=== PATIENT | male | born 1945 | race Caucasian/White ===

== ENCOUNTER 2021-05-11 14:43 | Inpatient (IN) ==
[2021-05-11] MEDS ORDERED: SODIUM CHLORIDE 0.9% 1,000 ML IV STA (15:39)
[2021-05-11] MEDS ORDERED: ASPIRIN 325 MG TABLET PO STA (15:39)
[2021-05-11 15:49] LABS: Basophils % 0.4 % (0.0-0.8); Eosinophils % 0.3 % (0.00-10.9); Hematocrit 37.7 VOL% (42.0-52.0); Hemoglobin 12.7 GM/DL (14.0-18.0); Immature Granulocytes % 0.5 %; Immature Granulocytes Absolute 0.04 #; Lymphocytes # 1.1 10*3/uL (1.4-4.0); Lymphocytes % 14.1 % (21.2-54.2); Mean Corpuscular HGB Conc 33.7 GM/DL (32-36); Mean Corpuscular Volume 92.4 FL (87-102); Mean Platelet Volume 9.8 FL (9.6-12.0); Monocytes % 12.7 % (1.7-12.7); Platelet Count 183 T/CUMM (130-400); Red Blood Count 4.08 MC/CUMM (3.8-5.5); Red Cell Distribution Width 13.2 % (9.3-17.3); White Blood Count 7.6 T/CUMM (4-12)
[2021-05-11 16:10] LABS: Albumin 3.9 G/DL (3.4-5.0); Bilirubin,Total 2.3 MG/DL (0.20-1.00); Calcium 9.9 MG/DL (8.5-10.1); Osmolality,Calculated 271.5 MOS/KG (273-304); Potassium 4.2 MMOL/L (3.5-5.1); Total Protein 6.5 G/DL (6.4-8.2)
[2021-05-11 17:26] LABS: Thyroid Stimulating Hormone 4.09 uIU/ml (0.358-3.74)
[2021-05-11] MEDS ORDERED: THIAMINE 200 MG/2 ML VIAL IV STA (17:29)
[2021-05-11] MEDS ORDERED: THIAMINE INJ 100 MG, FOLIC ACID INJ 1 MG, MAGNESIUM SULF INJ 2 GM, MULTIVITAMIN INJ 10 ... IV ONE (17:29)
[2021-05-11] MEDS ORDERED: ONDANSETRON 4 MG/2 ML VIAL IV PRN (17:39)
[2021-05-11] MEDS ORDERED: ENOXAPARIN 40 MG/0.4 ML SYRINGE SUBCUT SCH (18:00)
[2021-05-11 18:02] LABS: Hepatitis B Core IgM Quant 0.06 Index; Hepatitis B Surface Ag Quant < 0.10 Index; Hepatitis B Surface Ag Result Non-Reactive (NonReactive); Hepatitis C Virus Ab Quant 0.04 Index; Hepatitis C Virus Ab Result Non-Reactive (NonReactive)
[2021-05-11 18:14] LABS: Folate > 24.00 NG/ML (5.38-24.0); Vitamin B12 > 2000 PG/ML (211-911)
[2021-05-11] MEDS: TAMSULOSIN 0.4 MG CAPSULE PO SCH (22:15)
[2021-05-11] MEDS: DOCUSATE SODIUM 100 MG CAPSULE PO SCH (22:15)
[2021-05-12 02:15] LABS: Bilirubin,Urine Negative (Negative); Blood, Urine Small mg/dL (Negative); Glucose,Urine (UA) Negative (Negative); Hyaline Casts,Urine 13 /LPF (0-3); Ketones,Urine 5 mg/dL (Negative); Mucus,Urine Occasional /LPF (Occasional); Nitrite,Urine Negative (Negative); Protein,Urine Negative; RBC,Urine <1 /HPF (0-4); Sperm,Urine Occasional /HPF (Negative); Squamous Epithelial Cell,Urine Occasional /HPF (0-10); Urine Appearance Slightly Hazy (Clear); Urine Color Yellow (Yellow); Urine Specific Gravity 1.017 (1.001-1.035); Urine Urobilinogen < 2.0 EU/DL (0.2-1.0)
[2021-05-12 05:41] LABS: Basophils % 0.5 % (0.0-0.8); Eosinophils # 0.1 10*3/uL (0.0-0.87); Eosinophils % 2.2 % (0.00-10.9); Hematocrit 32.7 VOL% (42.0-52.0); Hemoglobin 11.4 GM/DL (14.0-18.0); Immature Granulocytes % 0.4 %; Immature Granulocytes Absolute 0.02 #; Lymphocytes # 1.4 10*3/uL (1.4-4.0); Lymphocytes % 24.9 % (21.2-54.2); Mean Corpuscular HGB Conc 34.9 GM/DL (32-36); Mean Corpuscular Volume 91.3 FL (87-102); Monocytes % 13.1 % (1.7-12.7); Neutrophils % 58.9 % (38.7-73.9); Platelet Count 126 T/CUMM (130-400); Red Blood Count 3.58 MC/CUMM (3.8-5.5); White Blood Count 5.5 T/CUMM (4-12)
[2021-05-12 06:05] LABS: Calcium 8.7 MG/DL (8.5-10.1); Osmolality,Calculated 268.4 MOS/KG (273-304); Potassium 3.6 MMOL/L (3.5-5.1); Risk Ratio 2.24; VLDL Cholesterol 17.2 MG/DL
[2021-05-12] MEDS: amLODIPine 5 MG TABLET PO SCH (08:14)
[2021-05-12] MEDS: FEXOFENADINE 180 MG TABLET PO SCH (08:14)
[2021-05-12] MEDS: PANTOPRAZOLE 40 MG TABLET PO SCH (08:14)
[2021-05-12] MEDS: allopurinoL 300 MG TABLET PO SCH (08:14)
[2021-05-12] MEDS: TAMSULOSIN 0.4 MG CAPSULE PO SCH ×2 (08:15→20:45)
[2021-05-12] MEDS: CYANOCOBALAMIN 500 MCG TABLET PO SCH (08:15)
[2021-05-12] MEDS: MULTIVITAMIN (CENTRUM) TABLET PO SCH (08:15)
[2021-05-12] MEDS: DOCUSATE SODIUM 100 MG CAPSULE PO SCH ×2 (08:15→20:45)
[2021-05-12] MEDS: ASPIRIN EC 81 MG TABLET PO SCH (08:15)
[2021-05-12] MEDS: COENZYME Q10 100 MG CAPSULE PO SCH (08:16)
[2021-05-12] MEDS ORDERED: THIAMINE 100 MG TABLET PO SCH (09:00)
[2021-05-12] MEDS: SODIUM CHLORIDE 0.9% 1,000 ML IV SCH ×2 (10:01→18:18)
[2021-05-12] MEDS: MUPIROCIN 2% OINT 22 GM TUBE TOP SCH ×2 (10:11→21:02)
[2021-05-12] MEDS: LORazepam 2 MG/1 ML VIAL IV PRN (14:06)
[2021-05-12] MEDS ORDERED: THIAMINE 200 MG/2 ML VIAL IV SCH (17:30)
[2021-05-12] MEDS: ENOXAPARIN 40 MG/0.4 ML SYRINGE SUBCUT SCH (20:45)
[2021-05-12] MEDS: LORazepam 0.5 MG TABLET PO SCH (20:45)
[2021-05-13] MEDS: THIAMINE 200 MG/2 ML VIAL IV SCH ×3 (01:29→16:47)
[2021-05-13] MEDS: LORazepam 2 MG/1 ML VIAL IV PRN ×3 (01:30→22:21)
[2021-05-13] MEDS: SODIUM CHLORIDE 0.9% 1,000 ML IV SCH ×3 (02:37→18:30)
[2021-05-13] MEDS ORDERED: HALOPERIDOL 5 MG/ML AMP IM ONE (04:03)
[2021-05-13] MEDS ORDERED: LORazepam 2 MG/1 ML VIAL IM ONE (04:14)
[2021-05-13] MEDS: amLODIPine 5 MG TABLET PO SCH (12:33)
[2021-05-13] MEDS: LORazepam 0.5 MG TABLET PO SCH ×2 (12:33→21:11)
[2021-05-13] MEDS: PANTOPRAZOLE 40 MG TABLET PO SCH (12:34)
[2021-05-13] MEDS: ASPIRIN EC 81 MG TABLET PO SCH (12:34)
[2021-05-13] MEDS: CYANOCOBALAMIN 500 MCG TABLET PO SCH (12:40)
[2021-05-13] MEDS: FEXOFENADINE 180 MG TABLET PO SCH (12:40)
[2021-05-13] MEDS: allopurinoL 300 MG TABLET PO SCH (12:40)
[2021-05-13] MEDS: COENZYME Q10 100 MG CAPSULE PO SCH (12:41)
[2021-05-13] MEDS: DOCUSATE SODIUM 100 MG CAPSULE PO SCH ×2 (12:41→21:11)
[2021-05-13] MEDS: MULTIVITAMIN (CENTRUM) TABLET PO SCH (12:41)
[2021-05-13] MEDS: TAMSULOSIN 0.4 MG CAPSULE PO SCH ×2 (12:42→21:11)
[2021-05-13] MEDS: MUPIROCIN 2% OINT 22 GM TUBE TOP SCH ×2 (12:43→21:11)
[2021-05-13] MEDS: HALOPERIDOL 5 MG TABLET PO SCH ×2 (16:45→21:11)
[2021-05-13] MEDS: ENOXAPARIN 40 MG/0.4 ML SYRINGE SUBCUT SCH (21:11)
[2021-05-13] MEDS ORDERED: LORazepam 2 MG/1 ML VIAL IV ONE (23:51)
[2021-05-14] MEDS: THIAMINE 200 MG/2 ML VIAL IV SCH ×3 (00:26→17:49)
[2021-05-14 08:32] LABS: PT Patient Result 11.2 SECS (10.5-12.0)
[2021-05-14] MEDS: amLODIPine 5 MG TABLET PO SCH (09:32)
[2021-05-14] MEDS: LORazepam 0.5 MG TABLET PO SCH ×3 (09:32→20:44)
[2021-05-14] MEDS: HALOPERIDOL 5 MG TABLET PO SCH ×2 (09:32→20:44)
[2021-05-14] MEDS: MUPIROCIN 2% OINT 22 GM TUBE TOP SCH ×2 (09:33→20:44)
[2021-05-14] MEDS: SODIUM CHLORIDE 0.9% 1,000 ML IV SCH ×3 (11:01→20:42)
[2021-05-14 13:26] LABS: Basophils % 0.3 % (0.0-0.8); Eosinophils # 0.1 10*3/uL (0.0-0.87); Eosinophils % 0.9 % (0.00-10.9); Hematocrit 33.3 VOL% (42.0-52.0); Hemoglobin 11.2 GM/DL (14.0-18.0); Immature Granulocytes % 0.5 %; Immature Granulocytes Absolute 0.03 #; Lymphocytes # 1.2 10*3/uL (1.4-4.0); Lymphocytes % 18.5 % (21.2-54.2); Mean Corpuscular HGB Conc 33.6 GM/DL (32-36); Mean Corpuscular Volume 93.3 FL (87-102); Monocytes % 9.8 % (1.7-12.7); Platelet Count 130 T/CUMM (130-400); Red Blood Count 3.57 MC/CUMM (3.8-5.5); Red Cell Distribution Width 12.9 % (9.3-17.3); White Blood Count 6.5 T/CUMM (4-12)
[2021-05-14 13:27] LABS: Glucose,CSF 51 MG/DL (40-70)
[2021-05-14] MEDS: PANTOPRAZOLE 40 MG TABLET PO SCH (13:27)
[2021-05-14] MEDS: TAMSULOSIN 0.4 MG CAPSULE PO SCH ×2 (13:27→20:44)
[2021-05-14] MEDS: CYANOCOBALAMIN 500 MCG TABLET PO SCH (13:27)
[2021-05-14] MEDS: FEXOFENADINE 180 MG TABLET PO SCH (13:27)
[2021-05-14] MEDS: ASPIRIN EC 81 MG TABLET PO SCH (13:27)
[2021-05-14] MEDS: COENZYME Q10 100 MG CAPSULE PO SCH (13:27)
[2021-05-14] MEDS: allopurinoL 300 MG TABLET PO SCH (13:28)
[2021-05-14] MEDS: DOCUSATE SODIUM 100 MG CAPSULE PO SCH ×2 (13:28→20:43)
[2021-05-14] MEDS: MULTIVITAMIN (CENTRUM) TABLET PO SCH (13:28)
[2021-05-14 13:34] LABS: Albumin 3.3 G/DL (3.4-5.0); Bilirubin,Total 1.2 MG/DL (0.20-1.00); Osmolality,Calculated 266.1 MOS/KG (273-304); Potassium 3.5 MMOL/L (3.5-5.1); Total Protein 6.3 G/DL (6.4-8.2)
[2021-05-14 13:40] LABS: Appearance,CSF Clear; Lymphocytes,CSF 87 %; Neutrophils,CSF 13 %; Red Blood Cell,CSF 793 C/CUMM; White Blood Cell,CSF 2 C/CUMM
[2021-05-14] MEDS: LORazepam 2 MG/1 ML VIAL IV PRN ×2 (16:17→23:02)
[2021-05-14] MEDS: ENOXAPARIN 40 MG/0.4 ML SYRINGE SUBCUT SCH (20:43)
[2021-05-15] MEDS: THIAMINE 200 MG/2 ML VIAL IV SCH ×3 (01:03→18:02)
[2021-05-15] MEDS: LORazepam 2 MG/1 ML VIAL IV PRN (04:30)
[2021-05-15] MEDS: SODIUM CHLORIDE 0.9% 1,000 ML IV SCH ×2 (04:32→15:12)
[2021-05-15] MEDS: COENZYME Q10 100 MG CAPSULE PO SCH (10:24)
[2021-05-15] MEDS: MULTIVITAMIN (CENTRUM) TABLET PO SCH (10:24)
[2021-05-15] MEDS: FEXOFENADINE 180 MG TABLET PO SCH (10:24)
[2021-05-15] MEDS: TAMSULOSIN 0.4 MG CAPSULE PO SCH ×2 (10:24→20:23)
[2021-05-15] MEDS: amLODIPine 5 MG TABLET PO SCH (10:25)
[2021-05-15] MEDS: LORazepam 0.5 MG TABLET PO SCH ×3 (10:25→20:23)
[2021-05-15] MEDS: CYANOCOBALAMIN 500 MCG TABLET PO SCH (10:25)
[2021-05-15] MEDS: ASPIRIN EC 81 MG TABLET PO SCH (10:26)
[2021-05-15] MEDS: allopurinoL 300 MG TABLET PO SCH (10:26)
[2021-05-15] MEDS: HALOPERIDOL 5 MG TABLET PO SCH ×2 (10:26→20:23)
[2021-05-15] MEDS: DOCUSATE SODIUM 100 MG CAPSULE PO SCH ×2 (10:26→20:23)
[2021-05-15] MEDS: MUPIROCIN 2% OINT 22 GM TUBE TOP SCH ×2 (10:26→20:23)
[2021-05-15] MEDS: PANTOPRAZOLE 40 MG TABLET PO SCH (10:26)
[2021-05-15 14:47] LABS: VDRL Spinal Fluid Negative (Negative)
[2021-05-15] MEDS: ENOXAPARIN 40 MG/0.4 ML SYRINGE SUBCUT SCH (20:23)
[2021-05-16] MEDS: LORazepam 2 MG/1 ML VIAL IV PRN (01:11)
[2021-05-16] MEDS: SODIUM CHLORIDE 0.9% 1,000 ML IV SCH ×4 (04:03→17:53)
[2021-05-16 05:37] LABS: Basophils % 0.4 % (0.0-0.8); Eosinophils # 0.1 10*3/uL (0.0-0.87); Hematocrit 34.7 VOL% (42.0-52.0); Hemoglobin 12.1 GM/DL (14.0-18.0); Immature Granulocytes % 0.4 %; Immature Granulocytes Absolute 0.03 #; Lymphocytes # 0.8 10*3/uL (1.4-4.0); Lymphocytes % 11.4 % (21.2-54.2); Mean Corpuscular HGB Conc 34.9 GM/DL (32-36); Mean Corpuscular Volume 91.8 FL (87-102); Mean Platelet Volume 9.1 FL (9.6-12.0); Monocytes % 13.4 % (1.7-12.7); Neutrophils % 73.4 % (38.7-73.9); Platelet Count 145 T/CUMM (130-400); Red Blood Count 3.78 MC/CUMM (3.8-5.5); Red Cell Distribution Width 12.7 % (9.3-17.3); White Blood Count 6.9 T/CUMM (4-12)
[2021-05-16] MEDS: PANTOPRAZOLE 40 MG TABLET PO SCH (09:40)
[2021-05-16] MEDS: THIAMINE 200 MG/2 ML VIAL IV SCH (09:40)
[2021-05-16] MEDS: MULTIVITAMIN (CENTRUM) TABLET PO SCH (09:40)
[2021-05-16] MEDS: CYANOCOBALAMIN 500 MCG TABLET PO SCH (09:40)
[2021-05-16] MEDS: DOCUSATE SODIUM 100 MG CAPSULE PO SCH ×2 (09:40→21:13)
[2021-05-16] MEDS: ASPIRIN EC 81 MG TABLET PO SCH (09:40)
[2021-05-16] MEDS: FEXOFENADINE 180 MG TABLET PO SCH (09:41)
[2021-05-16] MEDS: HALOPERIDOL 5 MG TABLET PO SCH ×2 (09:41→21:14)
[2021-05-16] MEDS: COENZYME Q10 100 MG CAPSULE PO SCH (09:41)
[2021-05-16] MEDS: LORazepam 0.5 MG TABLET PO SCH ×3 (09:41→21:14)
[2021-05-16] MEDS: TAMSULOSIN 0.4 MG CAPSULE PO SCH ×2 (09:41→21:13)
[2021-05-16] MEDS: MUPIROCIN 2% OINT 22 GM TUBE TOP SCH ×2 (09:42→21:15)
[2021-05-16] MEDS: amLODIPine 5 MG TABLET PO SCH (09:42)
[2021-05-16] MEDS: allopurinoL 300 MG TABLET PO SCH (09:42)
[2021-05-16] MEDS: ACETAMINOPHEN 325 MG TABLET PO PRN ×2 (15:54→21:13)
[2021-05-16] MEDS: ENOXAPARIN 40 MG/0.4 ML SYRINGE SUBCUT SCH (21:15)
[2021-05-17] MEDS: LORazepam 2 MG/1 ML VIAL IV PRN (04:42)
[2021-05-17] MEDS: SODIUM CHLORIDE 0.9% 1,000 ML IV SCH ×2 (06:35→14:49)
[2021-05-17 07:28] LABS: Albumin 2.8 G/DL (3.4-5.0); Bilirubin,Total 2.2 MG/DL (0.20-1.00); Calcium 8.8 MG/DL (8.5-10.1); Osmolality,Calculated 256.8 MOS/KG (273-304); Total Protein 6.6 G/DL (6.4-8.2)
[2021-05-17] MEDS ORDERED: DIAZEPAM 10 MG/2 ML SYRINGE IV ONE ×2 (07:32→15:00)
[2021-05-17 08:06] LABS: M. Tuberculosis PCR Result Negative (Negative); M. Tuberculosis PCR Source CSF
[2021-05-17] MEDS: amLODIPine 5 MG TABLET PO SCH (09:45)
[2021-05-17] MEDS: FEXOFENADINE 180 MG TABLET PO SCH (09:45)
[2021-05-17] MEDS: CYANOCOBALAMIN 500 MCG TABLET PO SCH (09:46)
[2021-05-17] MEDS: MULTIVITAMIN (CENTRUM) TABLET PO SCH (09:46)
[2021-05-17] MEDS: allopurinoL 300 MG TABLET PO SCH (09:46)
[2021-05-17] MEDS: PANTOPRAZOLE 40 MG TABLET PO SCH (09:46)
[2021-05-17] MEDS: COENZYME Q10 100 MG CAPSULE PO SCH (09:46)
[2021-05-17] MEDS: TAMSULOSIN 0.4 MG CAPSULE PO SCH ×2 (09:46→20:50)
[2021-05-17] MEDS: HALOPERIDOL 5 MG TABLET PO SCH ×2 (09:46→20:50)
[2021-05-17] MEDS: LORazepam 0.5 MG TABLET PO SCH ×3 (09:46→20:50)
[2021-05-17] MEDS: DOCUSATE SODIUM 100 MG CAPSULE PO SCH ×2 (09:46→20:50)
[2021-05-17] MEDS: ASPIRIN EC 81 MG TABLET PO SCH (09:46)
[2021-05-17] MEDS: MUPIROCIN 2% OINT 22 GM TUBE TOP SCH ×2 (09:46→20:54)
[2021-05-17] MEDS: THIAMINE 200 MG/2 ML VIAL IV SCH (09:47)
[2021-05-17 12:16] LABS: West Nile Virus Ab, IgG, CSF Negative (Negative); West Nile Virus Ab, IgM, CSF Negative (Negative)
[2021-05-17] MEDS: ACETAMINOPHEN 500 MG TABLET PO SCH (18:26)
[2021-05-17] MEDS: diphenhydrAMINE 50 MG/1 ML VIAL IV SCH (18:27)
[2021-05-17] MEDS: IMMUNE GLOBULIN 10% 20 GM, IMMUNE GLOBULIN 10% 10 GM, IMMUNE GLOBULIN 10% 5 GM in PREMI... IV SCH (19:02)
[2021-05-17] MEDS: ENOXAPARIN 40 MG/0.4 ML SYRINGE SUBCUT SCH (20:50)
[2021-05-17] MEDS: MEMANTINE 5 MG TABLET PO SCH (20:50)
[2021-05-17] MEDS ORDERED: HALOPERIDOL CONCENTRATE 2 MG/ML 15 ML BOTTLE PO SCH (21:00)
[2021-05-18] MEDS ORDERED: DIAZEPAM 10 MG/2 ML SYRINGE IV ONE (07:38)
[2021-05-18] MEDS: MULTIVITAMIN (CENTRUM) TABLET PO SCH (09:00)
[2021-05-18] MEDS: COENZYME Q10 100 MG CAPSULE PO SCH (09:00)
[2021-05-18] MEDS: amLODIPine 5 MG TABLET PO SCH (09:01)
[2021-05-18] MEDS: HALOPERIDOL 5 MG TABLET PO SCH ×2 (09:01→20:18)
[2021-05-18] MEDS: CYANOCOBALAMIN 500 MCG TABLET PO SCH (09:01)
[2021-05-18] MEDS: LORazepam 0.5 MG TABLET PO SCH ×3 (09:01→20:18)
[2021-05-18] MEDS: FEXOFENADINE 180 MG TABLET PO SCH (09:01)
[2021-05-18] MEDS: ASPIRIN EC 81 MG TABLET PO SCH (09:01)
[2021-05-18] MEDS: TAMSULOSIN 0.4 MG CAPSULE PO SCH ×2 (09:01→20:18)
[2021-05-18] MEDS: MEMANTINE 5 MG TABLET PO SCH ×2 (09:02→20:18)
[2021-05-18] MEDS: MUPIROCIN 2% OINT 22 GM TUBE TOP SCH ×2 (09:02→20:23)
[2021-05-18] MEDS: DOCUSATE SODIUM 100 MG CAPSULE PO SCH ×2 (09:02→20:18)
[2021-05-18] MEDS: allopurinoL 300 MG TABLET PO SCH (09:02)
[2021-05-18] MEDS: PANTOPRAZOLE 40 MG TABLET PO SCH (09:02)
[2021-05-18] MEDS: THIAMINE 200 MG/2 ML VIAL IV SCH (09:03)
[2021-05-18] MEDS: diphenhydrAMINE 50 MG/1 ML VIAL IV SCH ×2 (12:29→17:19)
[2021-05-18] MEDS: IMMUNE GLOBULIN 10% 20 GM, IMMUNE GLOBULIN 10% 10 GM, IMMUNE GLOBULIN 10% 5 GM in PREMI... IV SCH ×2 (12:29→18:05)
[2021-05-18] MEDS: ACETAMINOPHEN 500 MG TABLET PO SCH ×2 (12:29→17:19)
[2021-05-18] MEDS: SODIUM CHLORIDE 0.9% 1,000 ML IV SCH (12:49)
[2021-05-18] MEDS: LORazepam 2 MG/1 ML VIAL IV PRN (18:01)
[2021-05-18] MEDS: ENOXAPARIN 40 MG/0.4 ML SYRINGE SUBCUT SCH (20:23)
[2021-05-18] MEDS: clonazePAM 0.5 MG TABLET PO PRN (21:51)
[2021-05-19 05:39] LABS: Basophils % 0.8 % (0.0-0.8); Eosinophils # 0.1 10*3/uL (0.0-0.87); Eosinophils % 3.9 % (0.00-10.9); Hematocrit 33.3 VOL% (42.0-52.0); Hemoglobin 11.9 GM/DL (14.0-18.0); Immature Granulocytes % 0.6 %; Immature Granulocytes Absolute 0.02 #; Lymphocytes # 0.9 10*3/uL (1.4-4.0); Lymphocytes % 23.9 % (21.2-54.2); Mean Corpuscular HGB Conc 35.7 GM/DL (32-36); Monocytes % 21.7 % (1.7-12.7); Neutrophils % 49.1 % (38.7-73.9); Platelet Count 209 T/CUMM (130-400); Red Blood Count 3.74 MC/CUMM (3.8-5.5); White Blood Count 3.6 T/CUMM (4-12)
[2021-05-19] MEDS: SODIUM CHLORIDE 0.9% 1,000 ML IV SCH ×2 (05:50→10:19)
[2021-05-19 06:07] LABS: Calcium 9.1 MG/DL (8.5-10.1); Osmolality,Calculated 247.5 MOS/KG (273-304)
[2021-05-19 06:18] LABS: Eosinophils 3 % (0-10); Hypochromasia Slight; Lymphocytes 25 % (20-55); Segmented Neutrophils 56 % (50-85); Total Cells Counted 100
[2021-05-19 06:19] LABS: Microcytosis Slight; Platelet Estimate Normal
[2021-05-19] MEDS: THIAMINE 200 MG/2 ML VIAL IV SCH (10:10)
[2021-05-19] MEDS: HALOPERIDOL 5 MG TABLET PO SCH (10:13)
[2021-05-19] MEDS: CYANOCOBALAMIN 500 MCG TABLET PO SCH (10:14)
[2021-05-19] MEDS: amLODIPine 5 MG TABLET PO SCH (10:15)
[2021-05-19] MEDS: COENZYME Q10 100 MG CAPSULE PO SCH (10:15)
[2021-05-19] MEDS: LORazepam 0.5 MG TABLET PO SCH ×3 (10:15→21:33)
[2021-05-19] MEDS: MULTIVITAMIN (CENTRUM) TABLET PO SCH (10:16)
[2021-05-19] MEDS: DOCUSATE SODIUM 100 MG CAPSULE PO SCH ×2 (10:16→21:33)
[2021-05-19] MEDS: FEXOFENADINE 180 MG TABLET PO SCH (10:16)
[2021-05-19] MEDS: ASPIRIN EC 81 MG TABLET PO SCH (10:16)
[2021-05-19] MEDS: PANTOPRAZOLE 40 MG TABLET PO SCH (10:17)
[2021-05-19] MEDS: allopurinoL 300 MG TABLET PO SCH (10:17)
[2021-05-19] MEDS: POTASSIUM CHLORIDE 20 MEQ TABLET PO PRN ×4 (10:17→18:58)
[2021-05-19] MEDS: MEMANTINE 5 MG TABLET PO SCH ×2 (10:18→21:33)
[2021-05-19] MEDS: TAMSULOSIN 0.4 MG CAPSULE PO SCH ×2 (10:18→21:33)
[2021-05-19] MEDS: MUPIROCIN 2% OINT 22 GM TUBE TOP SCH ×2 (10:19→21:33)
[2021-05-19] MEDS: diphenhydrAMINE 50 MG/1 ML VIAL IV SCH (18:14)
[2021-05-19] MEDS: ACETAMINOPHEN 500 MG TABLET PO SCH (18:14)
[2021-05-19] MEDS: IMMUNE GLOBULIN 10% 20 GM, IMMUNE GLOBULIN 10% 10 GM, IMMUNE GLOBULIN 10% 5 GM in PREMI... IV SCH (18:57)
[2021-05-19 21:25] LABS: IgG Index, CSF 0.5 (<=0.85); IgG, CSF 5.8 mg/dL (<=8.1); IgG/Albumin Ratio, CSF 0.1 (<=0.21); Synthesis Rate, CSF 3.47 mg/24 h (<=12)
[2021-05-19] MEDS: ENOXAPARIN 40 MG/0.4 ML SYRINGE SUBCUT SCH (21:34)
[2021-05-20 06:25] LABS: Calcium 9.2 MG/DL (8.5-10.1); Osmolality,Calculated 249.4 MOS/KG (273-304); Potassium 3.6 MMOL/L (3.5-5.1)
[2021-05-20] MEDS: COENZYME Q10 100 MG CAPSULE PO SCH (09:40)
[2021-05-20] MEDS: THIAMINE 200 MG/2 ML VIAL IV SCH (09:40)
[2021-05-20] MEDS: CYANOCOBALAMIN 500 MCG TABLET PO SCH (09:41)
[2021-05-20] MEDS: TAMSULOSIN 0.4 MG CAPSULE PO SCH ×2 (09:41→21:24)
[2021-05-20] MEDS: PANTOPRAZOLE 40 MG TABLET PO SCH (09:42)
[2021-05-20] MEDS: ASPIRIN EC 81 MG TABLET PO SCH (09:42)
[2021-05-20] MEDS: DOCUSATE SODIUM 100 MG CAPSULE PO SCH ×2 (09:42→21:24)
[2021-05-20] MEDS: LORazepam 0.5 MG TABLET PO SCH ×3 (09:42→21:24)
[2021-05-20] MEDS: allopurinoL 300 MG TABLET PO SCH (09:42)
[2021-05-20] MEDS: MEMANTINE 5 MG TABLET PO SCH ×2 (09:42→21:24)
[2021-05-20] MEDS: FEXOFENADINE 180 MG TABLET PO SCH (09:43)
[2021-05-20] MEDS: MULTIVITAMIN (CENTRUM) TABLET PO SCH (09:43)
[2021-05-20] MEDS: amLODIPine 5 MG TABLET PO SCH (09:43)
[2021-05-20] MEDS: MUPIROCIN 2% OINT 22 GM TUBE TOP SCH ×2 (09:49→21:24)
[2021-05-20] MEDS: SODIUM CHLORIDE 0.9% 1,000 ML IV SCH ×2 (13:31→17:39)
[2021-05-20] MEDS: ACETAMINOPHEN 500 MG TABLET PO SCH (18:07)
[2021-05-20] MEDS: diphenhydrAMINE 50 MG/1 ML VIAL IV SCH (18:10)
[2021-05-20] MEDS: IMMUNE GLOBULIN 10% 20 GM, IMMUNE GLOBULIN 10% 10 GM, IMMUNE GLOBULIN 10% 5 GM in PREMI... IV SCH (18:46)
[2021-05-20] MEDS: ENOXAPARIN 40 MG/0.4 ML SYRINGE SUBCUT SCH (21:24)
[2021-05-20] MEDS: clonazePAM 0.5 MG TABLET PO PRN (21:24)
[2021-05-21 05:12] LABS: Calcium 8.8 MG/DL (8.5-10.1); Osmolality,Calculated 256.8 MOS/KG (273-304); Potassium 3.2 MMOL/L (3.5-5.1)
[2021-05-21] MEDS: CYANOCOBALAMIN 500 MCG TABLET PO SCH (10:17)
[2021-05-21] MEDS: MEMANTINE 5 MG TABLET PO SCH ×2 (10:17→20:15)
[2021-05-21] MEDS: POTASSIUM CHLORIDE 20 MEQ TABLET PO PRN ×2 (10:17→10:19)
[2021-05-21] MEDS: FEXOFENADINE 180 MG TABLET PO SCH (10:17)
[2021-05-21] MEDS: COENZYME Q10 100 MG CAPSULE PO SCH (10:17)
[2021-05-21] MEDS: PANTOPRAZOLE 40 MG TABLET PO SCH (10:17)
[2021-05-21] MEDS: MULTIVITAMIN (CENTRUM) TABLET PO SCH (10:17)
[2021-05-21] MEDS: LORazepam 0.5 MG TABLET PO SCH ×3 (10:17→20:15)
[2021-05-21] MEDS: ASPIRIN EC 81 MG TABLET PO SCH (10:18)
[2021-05-21] MEDS: allopurinoL 300 MG TABLET PO SCH (10:18)
[2021-05-21] MEDS: TAMSULOSIN 0.4 MG CAPSULE PO SCH ×2 (10:18→20:15)
[2021-05-21] MEDS: DOCUSATE SODIUM 100 MG CAPSULE PO SCH ×2 (10:18→20:15)
[2021-05-21] MEDS: amLODIPine 5 MG TABLET PO SCH (10:22)
[2021-05-21] MEDS: MUPIROCIN 2% OINT 22 GM TUBE TOP SCH ×2 (10:28→20:16)
[2021-05-21] MEDS: diphenhydrAMINE 50 MG/1 ML VIAL IV SCH (17:40)
[2021-05-21] MEDS: ACETAMINOPHEN 500 MG TABLET PO SCH (17:44)
[2021-05-21] MEDS: IMMUNE GLOBULIN 10% 20 GM, IMMUNE GLOBULIN 10% 10 GM, IMMUNE GLOBULIN 10% 5 GM in PREMI... IV SCH (18:19)
[2021-05-21] MEDS: SODIUM CHLORIDE 0.9% 1,000 ML IV SCH (19:23)
[2021-05-21] MEDS: ENOXAPARIN 40 MG/0.4 ML SYRINGE SUBCUT SCH (20:15)
[2021-05-21] MEDS: clonazePAM 0.5 MG TABLET PO PRN (23:08)
[2021-05-22] MEDS: SODIUM CHLORIDE 0.9% 1,000 ML IV SCH ×3 (05:41→12:01)
[2021-05-22] MEDS: MEMANTINE 5 MG TABLET PO SCH ×2 (09:50→20:33)
[2021-05-22] MEDS: MULTIVITAMIN (CENTRUM) TABLET PO SCH (09:50)
[2021-05-22] MEDS: ASPIRIN EC 81 MG TABLET PO SCH (09:50)
[2021-05-22] MEDS: LORazepam 0.5 MG TABLET PO SCH ×2 (09:50→20:32)
[2021-05-22] MEDS: FEXOFENADINE 180 MG TABLET PO SCH (09:50)
[2021-05-22] MEDS: TAMSULOSIN 0.4 MG CAPSULE PO SCH ×2 (09:50→20:33)
[2021-05-22] MEDS: POTASSIUM CHLORIDE 20 MEQ TABLET PO PRN ×4 (09:50→12:02)
[2021-05-22] MEDS: amLODIPine 5 MG TABLET PO SCH (09:51)
[2021-05-22] MEDS: CYANOCOBALAMIN 500 MCG TABLET PO SCH (09:51)
[2021-05-22] MEDS: PANTOPRAZOLE 40 MG TABLET PO SCH (09:51)
[2021-05-22] MEDS: allopurinoL 300 MG TABLET PO SCH (09:51)
[2021-05-22] MEDS: DOCUSATE SODIUM 100 MG CAPSULE PO SCH ×2 (09:51→20:33)
[2021-05-22] MEDS: COENZYME Q10 100 MG CAPSULE PO SCH (09:53)
[2021-05-22] MEDS: MUPIROCIN 2% OINT 22 GM TUBE TOP SCH ×2 (09:54→20:33)
[2021-05-22] MEDS: clonazePAM 0.5 MG TABLET PO PRN (20:33)
[2021-05-22] MEDS: ENOXAPARIN 40 MG/0.4 ML SYRINGE SUBCUT SCH (20:33)
[2021-05-23] MEDS: SODIUM CHLORIDE 0.9% 1,000 ML IV SCH ×3 (05:34→18:29)
[2021-05-23 06:54] LABS: Calcium 9.6 MG/DL (8.5-10.1); Osmolality,Calculated 262.5 MOS/KG (273-304); Potassium 4.2 MMOL/L (3.5-5.1)
[2021-05-23] MEDS: amLODIPine 5 MG TABLET PO SCH (09:59)
[2021-05-23] MEDS: PANTOPRAZOLE 40 MG TABLET PO SCH (09:59)
[2021-05-23] MEDS: FEXOFENADINE 180 MG TABLET PO SCH (09:59)
[2021-05-23] MEDS: allopurinoL 300 MG TABLET PO SCH (09:59)
[2021-05-23] MEDS: MULTIVITAMIN (CENTRUM) TABLET PO SCH (09:59)
[2021-05-23] MEDS: COENZYME Q10 100 MG CAPSULE PO SCH (09:59)
[2021-05-23] MEDS: MEMANTINE 5 MG TABLET PO SCH ×2 (09:59→20:29)
[2021-05-23] MEDS: DOCUSATE SODIUM 100 MG CAPSULE PO SCH ×2 (09:59→20:29)
[2021-05-23] MEDS: TAMSULOSIN 0.4 MG CAPSULE PO SCH ×2 (09:59→20:29)
[2021-05-23] MEDS: LORazepam 0.5 MG TABLET PO SCH ×2 (09:59→20:29)
[2021-05-23] MEDS: CYANOCOBALAMIN 500 MCG TABLET PO SCH (10:00)
[2021-05-23] MEDS: MUPIROCIN 2% OINT 22 GM TUBE TOP SCH ×2 (10:00→20:30)
[2021-05-23] MEDS: ASPIRIN EC 81 MG TABLET PO SCH (10:00)
[2021-05-23] MEDS: clonazePAM 0.5 MG TABLET PO PRN (20:29)
[2021-05-23] MEDS: ENOXAPARIN 40 MG/0.4 ML SYRINGE SUBCUT SCH (20:32)
[2021-05-24] MEDS: ACETAMINOPHEN 325 MG TABLET PO PRN ×2 (03:00→10:41)
[2021-05-24] MEDS: SODIUM CHLORIDE 0.9% 1,000 ML IV SCH ×2 (06:00→11:40)
[2021-05-24] MEDS ORDERED: TUBERCULIN SKIN TEST 0.1 ML SYRINGE INTRADERM ONE (08:03)
[2021-05-24] MEDS: DOCUSATE SODIUM 100 MG CAPSULE PO SCH ×2 (09:14→20:38)
[2021-05-24] MEDS: allopurinoL 300 MG TABLET PO SCH (09:14)
[2021-05-24] MEDS: PANTOPRAZOLE 40 MG TABLET PO SCH (09:14)
[2021-05-24] MEDS: amLODIPine 5 MG TABLET PO SCH (09:14)
[2021-05-24] MEDS: MEMANTINE 5 MG TABLET PO SCH ×2 (09:14→20:38)
[2021-05-24] MEDS: COENZYME Q10 100 MG CAPSULE PO SCH (09:14)
[2021-05-24] MEDS: MUPIROCIN 2% OINT 22 GM TUBE TOP SCH ×2 (09:15→20:38)
[2021-05-24] MEDS: MULTIVITAMIN (CENTRUM) TABLET PO SCH (09:15)
[2021-05-24] MEDS: TAMSULOSIN 0.4 MG CAPSULE PO SCH ×2 (09:15→20:38)
[2021-05-24] MEDS: FEXOFENADINE 180 MG TABLET PO SCH (09:15)
[2021-05-24] MEDS: CYANOCOBALAMIN 500 MCG TABLET PO SCH (09:15)
[2021-05-24] MEDS: LORazepam 0.5 MG TABLET PO SCH ×2 (09:15→20:38)
[2021-05-24] MEDS: ASPIRIN EC 81 MG TABLET PO SCH (09:15)
[2021-05-24] MEDS: clonazePAM 0.5 MG TABLET PO PRN (20:37)
[2021-05-24] MEDS: ENOXAPARIN 40 MG/0.4 ML SYRINGE SUBCUT SCH (20:37)
[2021-05-25] MEDS: SODIUM CHLORIDE 0.9% 1,000 ML IV SCH ×3 (05:32→20:05)
[2021-05-25 09:15] LABS: Calcium 9.4 MG/DL (8.5-10.1); Osmolality,Calculated 265.4 MOS/KG (273-304); Potassium 3.5 MMOL/L (3.5-5.1)
[2021-05-25] MEDS: FEXOFENADINE 180 MG TABLET PO SCH (09:18)
[2021-05-25] MEDS: ASPIRIN EC 81 MG TABLET PO SCH (09:19)
[2021-05-25] MEDS: TAMSULOSIN 0.4 MG CAPSULE PO SCH ×2 (09:19→20:04)
[2021-05-25] MEDS: LORazepam 0.5 MG TABLET PO SCH ×2 (09:19→20:03)
[2021-05-25] MEDS: amLODIPine 5 MG TABLET PO SCH (09:19)
[2021-05-25] MEDS: allopurinoL 300 MG TABLET PO SCH (09:19)
[2021-05-25] MEDS: CYANOCOBALAMIN 500 MCG TABLET PO SCH (09:19)
[2021-05-25] MEDS: MULTIVITAMIN (CENTRUM) TABLET PO SCH (09:19)
[2021-05-25] MEDS: COENZYME Q10 100 MG CAPSULE PO SCH (09:19)
[2021-05-25] MEDS: DOCUSATE SODIUM 100 MG CAPSULE PO SCH ×2 (09:20→20:04)
[2021-05-25] MEDS: MEMANTINE 5 MG TABLET PO SCH ×2 (09:20→20:04)
[2021-05-25] MEDS: PANTOPRAZOLE 40 MG TABLET PO SCH (09:20)
[2021-05-25] MEDS: MUPIROCIN 2% OINT 22 GM TUBE TOP SCH ×2 (09:22→20:04)
[2021-05-25] MEDS: ENOXAPARIN 40 MG/0.4 ML SYRINGE SUBCUT SCH (20:04)
[2021-05-26 09:00] VITALS: BP 136/62
[2021-05-26] MEDS: COENZYME Q10 100 MG CAPSULE PO SCH (09:12)
[2021-05-26] MEDS: MULTIVITAMIN (CENTRUM) TABLET PO SCH (09:12)
[2021-05-26] MEDS: amLODIPine 5 MG TABLET PO SCH (09:12)
[2021-05-26] MEDS: LORazepam 0.5 MG TABLET PO SCH (09:12)
[2021-05-26] MEDS: ASPIRIN EC 81 MG TABLET PO SCH (09:12)
[2021-05-26] MEDS: DOCUSATE SODIUM 100 MG CAPSULE PO SCH (09:12)
[2021-05-26] MEDS: FEXOFENADINE 180 MG TABLET PO SCH (09:13)
[2021-05-26] MEDS: TAMSULOSIN 0.4 MG CAPSULE PO SCH (09:13)
[2021-05-26] MEDS: CYANOCOBALAMIN 500 MCG TABLET PO SCH (09:13)
[2021-05-26] MEDS: allopurinoL 300 MG TABLET PO SCH (09:13)
[2021-05-26] MEDS: MEMANTINE 5 MG TABLET PO SCH (09:13)
[2021-05-26] MEDS: MUPIROCIN 2% OINT 22 GM TUBE TOP SCH (09:13)
[2021-05-26] MEDS: PANTOPRAZOLE 40 MG TABLET PO SCH (09:13)
[2021-05-26] MEDS: SODIUM CHLORIDE 0.9% 1,000 ML IV SCH (09:43)
== END 2021-05-26 12:15 | DRG 95 ==
LOC: EDUNIT# → N.ED 14:43 → N.EDINP 17:39 → N.2W 18:50 → N.2E 05-26 11:56
PROVIDERS: ADMIT Family Medicine; ATTEND Family Medicine